=== PATIENT | female | born 1980 | race Caucasian/White ===

== ENCOUNTER 2019-01-13 12:31 | Emergency (ER) | payer SELFPAY ==
[~2019-01-13] VITALS: Ht 165.1 cm; Wt 85.0 kg
[2019-01-13] MEDS ORDERED: KETOROLAC 60MG/2ML VIAL IM ONE (15:15)
[2019-01-13 17:01] VITALS: BP 118/64
== END 2019-01-13 17:07 | disposition home or self-care (01) ==
LOC: ER 12:40
DX: S20.212A Contusion of left front wall of thorax, initial encounter (principal); S50.02XA Contusion of left elbow, initial encounter; S40.022A Contusion of left upper arm, initial encounter; Y07.03 Male partner, perpetrator of maltreatment and neglect; Y04.8XXA Assault by other bodily force, initial encounter; Y93.89 Activity, other specified; Y92.89 Other specified places as the place of occurrence of the external cause; F12.90 Cannabis use, unspecified, uncomplicated
CPT/HCPCS: 71101; 81025; 93005; 96372; 99283; J1885

== ENCOUNTER 2019-04-05 20:43 | Emergency (ER) | payer MEDICAID ==
[~2019-04-05] VITALS: Ht 167.6 cm; Wt 72.0 kg
[2019-04-05] MEDS ORDERED: ACETAMINOPHEN 325MG TABLET PO STA (22:31)
[2019-04-05 23:57] LABS: CLARITY URINE TURBID (CLEAR); COLOR URINE YELLOW (YELLOW); KETONES URINE 1+ (NEGATIVE); LEUKOCYTE ESTERASE URINE 3+ (NEGATIVE); NITRITE URINE NEGATIVE (NEGATIVE); OCCULT BLOOD URINE 2+ (NEGATIVE); PH URINE 5.5 (4.5-8.0); PROTEIN URINE 1+ (NEGATIVE); SPECIFIC GRAVITY URINE 1.019 (1.005-1.030); UROBILINOGEN URINE 0.2 E.U./dL (0.2-1.0)
[2019-04-06 01:41] VITALS: BP 116/79
== END 2019-04-06 01:42 | disposition home or self-care (01) ==
LOC: ER 21:09
DX: F43.20 Adjustment disorder, unspecified (principal); N39.0 Urinary tract infection, site not specified; F41.9 Anxiety disorder, unspecified; Z90.89 Acquired absence of other organs; Z88.6 Allergy status to analgesic agent
CPT/HCPCS: 81003; 81025; 87077; 87186; 93005; 99284

== ENCOUNTER 2020-04-22 21:47 | Emergency (ER) | payer MEDICAID ==
[~2020-04-22] VITALS: Ht 167.6 cm; Wt 59.0 kg
[~2020-04-22 21:47] MED LIST: HYDR-4001 MT; NITR100C MT
[2020-04-22] MEDS ORDERED: ACETAMINOPHEN 325MG TABLET PO ONE (23:00)
[2020-04-22] MEDS ORDERED: TETANUS, DIPHTHERIA, PERTUSSIS VAC/PF 0.5ML (>7YR OLD) IM ONE (23:45)
[2020-04-22] MEDS ORDERED: BACITRACIN 15GM TUBE TOP ONE (23:45)
[2020-04-23 00:16] VITALS: BP 135/75
== END 2020-04-23 00:17 | disposition home or self-care (01) ==
LOC: ER 21:47
DX: L03.115 Cellulitis of right lower limb (principal); H66.93 Otitis media, unspecified, bilateral; Z88.6 Allergy status to analgesic agent; Z98.890 Other specified postprocedural states
CPT/HCPCS: 81025; 90471; 90715; 99283